=== PATIENT | male | born 1995 ===

== ENCOUNTER 2017-03-27 06:15 | Emergency (ER) | payer OTHER ==
[2017-03-27 06:34] VITALS: BP 128/76; PULSE 88; RESP 20; TEMP 97.9; O2SAT 97
--- NOTE | 2017-03-27 08:18 | C.PDOC ---
History Of Present Illness Patient was not seen Time Seen by Provider: 03/27/17 07:32 Chief Complaint (Nursing): Substance Abuse Past Medical History Vital Signs: Last Vital Signs Temp 97.9 F 03/27/17 06:29 Pulse 88 03/27/17 06:29 Resp 20 03/27/17 06:29 BP 128/76 03/27/17 06:29 Pulse Ox 97 03/27/17 06:29 - Medical History PMH: Asthma Family History: States: Unknown Family Hx - Social History Hx Alcohol Use: Yes Hx Substance Use: No - Immunization History Hx Tetanus Toxoid Vaccination: No Hx Influenza Vaccination: No Hx Pneumococcal Vaccination: No Review Of Systems Review Of Systems: ROS cannot be obtained secondary to pt's inabilty to answer questions. ED Course And Treatment O2 Sat by Pulse Oximetry: 97 Disposition - Disposition Disposition: LEFT W/O BEING SEEN - ER ONLY Disposition Time: 08:18 Condition: UNKNOWN - Clinical Impression Clinical Impression: Patient left without being seen
== END 2017-03-27 07:32 | disposition left against medical advice (07) ==
LOC: C.ER 06:15
DX: Z02.89 Encounter for other administrative examinations (principal); Z00.00 Encounter for general adult medical examination without abnormal findings